=== PATIENT | female | born 1995 ===

== ENCOUNTER → 2021-09-02 | Outpatient (CLI) | payer OTHER | END | disposition home or self-care (01) | LOC: PRENATAL 15:30 | PROVIDERS: ATTEND Obstetrics & Gynecology Maternal & Fetal Medicine | DX: O35.0XX1 Maternal care for (suspected) central nervous system malformation in fetus, fetus 1 (principal); O35.3XX1 Maternal care for (suspected) damage to fetus from viral disease in mother, fetus 1; O98.512 Other viral diseases complicating pregnancy, second trimester; Z36.89 Encounter for other specified antenatal screening; Z3A.19 19 weeks gestation of pregnancy ==

== ENCOUNTER 2021-12-26 08:48 | Outpatient (CLI) | payer OTHER | END 2021-12-26 09:19 | disposition home or self-care (01) | LOC: PRENATAL 08:48 | PROVIDERS: ATTEND Obstetrics & Gynecology Maternal & Fetal Medicine | DX: O36.5990 Maternal care for other known or suspected poor fetal growth, unspecified trimester, not applicable or unspecified (principal); O36.8199 Decreased fetal movements, unspecified trimester, other fetus; O26.849 Uterine size-date discrepancy, unspecified trimester ==

== ENCOUNTER 2022-01-05 22:29 | Outpatient (CLI) | payer OTHER | END 2022-01-06 21:23 | disposition home or self-care (01) | LOC: OBS/DEL 22:29 | PROVIDERS: ATTEND Obstetrics & Gynecology | DX: O47.1 False labor at or after 37 completed weeks of gestation (principal); Z3A.37 37 weeks gestation of pregnancy ==

== ENCOUNTER 2022-01-10 20:38 | Inpatient (IN) | payer OTHER ==
[~2022-01-10] VITALS: Ht 157.5 cm; Wt 75.3 kg
[2022-01-10] MEDS ORDERED: PRENATAL CAPLE1 EAC1 PO (21:33)
== END 2022-01-13 19:24 | disposition home or self-care (01) | DRG 807 ==
LOC: OB/GYN 20:38 → LDR 20:38 → OB/GYN 22:09
PROVIDERS: ADMIT Obstetrics & Gynecology; ATTEND Obstetrics & Gynecology
PROC: 10E0XZZ Delivery of Products of Conception, External Approach (ICD-10-PCS; principal; 2022-01-10)
PROC: 4A1HXCZ Monitoring of Products of Conception, Cardiac Rate, External Approach (ICD-10-PCS; 2022-01-10)
DX: O80 Encounter for full-term uncomplicated delivery (principal); Z37.0 Single live birth; Z3A.38 38 weeks gestation of pregnancy; Z20.822 Contact with and (suspected) exposure to COVID-19